=== PATIENT | male | born 1980 | race Caucasian/White ===

== ENCOUNTER 2018-09-10 03:33 | Emergency (ER) | payer SELFPAY ==
[~2018-09-10] VITALS: Ht 175.3 cm; Wt 80.0 kg
[2018-09-10 05:54] VITALS: BP 100/69
== END 2018-09-10 08:28 | disposition left against medical advice (07) ==
LOC: ER 03:33
DX: Z53.21 Procedure and treatment not carried out due to patient leaving prior to being seen by health care provider (principal); J45.909 Unspecified asthma, uncomplicated; F17.200 Nicotine dependence, unspecified, uncomplicated; Z86.718 Personal history of other venous thrombosis and embolism